=== PATIENT | female | born 1985 | race Hispanic/Latino ===

== ENCOUNTER 2018-01-12 17:05 | Emergency (ER) | payer OTHER ==
[2018-01-12 18:15] VITALS: BMI 28.7
== END 2018-01-12 19:47 | disposition home or self-care (01) ==
LOC: H.EROB2 17:05
DX: O26.93 Pregnancy related conditions, unspecified, third trimester (principal); R10.2 Pelvic and perineal pain; O47.1 False labor at or after 37 completed weeks of gestation; O48.0 Post-term pregnancy; Z3A.40 40 weeks gestation of pregnancy

== ENCOUNTER 2018-01-13 04:09 | Inpatient (IN) | payer OTHER ==
[2018-01-12 18:15] VITALS: BMI 28.7
[2018-01-13] MEDS: Lactated Ringer's 1,000 ML IV SCH ×4 (04:30→21:58)
[2018-01-13] MEDS ORDERED: Oxytocin 30 units/LR 500ML 30 U/500 ML BAG IV SCH (04:45)
[2018-01-13 04:59] LABS: BASO # 0.1 K/uL (0.0-0.2); BASO % 0.4 % (0.0-2.0); EOS % 0.1 % (0.0-4.0); HEMOGLOBIN 12.4 g/dL (12.0-16.0); LYMPH # 2.3 K/uL (1.0-4.3); LYMPH % 11.1 % (20.0-40.0); MEAN CELL VOLUME 89.4 fl (81.0-99.0); MEAN CORPUSCULAR HEMOGLOBIN 29.5 pg (27.0-31.0); MEAN PLATELET VOLUME 8.9 fl (7.2-11.7); MONO # 0.6 K/uL (0.0-0.8); NEUT # 17.7 K/uL (1.8-7.0); NEUT % 85.4 % (50.0-75.0); RBC 4.21 Mil/uL (3.80-5.20); RED CELL DISTRIBUTION WIDTH 13.3 % (11.5-14.5); WHITE BLOOD COUNT 20.7 K/uL (4.8-10.8)
[2018-01-13] MEDS ORDERED: Fentanyl/Bupivacaine HCl 250 ML EPI ONE (05:03)
[2018-01-13] MEDS ORDERED: Lidocaine 2% Inj (20ml) ONE (07:14)
--- NOTE | 2018-01-13 08:53 | OBADHP ---
Datetime: 01/12/2018 17:53 Admit Comment, IP Provider: 32 yo w/IUP at 40+ wks presents c/o ctx patient states that ctx sta rted at 2:30 pm and has been incresing in frequency and intensity, now every 5 min. +FM, denies lof, VB. PNC: [facility] Dr Lopez. PMH: denies PSH: denies NKA POB/GYNH: no STD PFH: denies. O: see PE tab. A/plan: 32 yo IUP @ 40+ wks with ctxl -/maternal monitoring Case discussed with Dr Mitchell. YBecerra PGY 1 Pelvic Type - PN: Adequate Extremities - PN: Normal Abdomen - PN: Normal Back - PN: Normal Breast - PN: Not Done Lungs - PN: Normal Heart - PN: Normal Thyroid - PN: Not Done Neurologic - PN: Normal HEENT - PN: Normal General - PN: Normal FHR - Baseline A Provider: 150 Contraction Comments Provider: every 3-4 min Vital Signs Provider: Reviewed; Within Normal Limits IP Chief Complaint: Uterine contractions NICHD Variability Prov Fetus A: Moderate 6-25bpm NICHD Accel Fetus A IP Provider: 10X10 FHR Category Provider Fetus A: Category I NICHD Decel Fetus A IP Provider: None Genitourinary Exam: Normal DTRs - PN: Not Done EGA AdmitDate IP: 41.0 IP Adm Impression: Term, intrauterine IP Admit Plan: Observation/Evaluation
--- NOTE | 2018-01-13 09:00 | OBADHP ---
Datetime: 01/13/2018 05:01 Admit Comment, IP Provider: 32-year-old at 41 weeks gestational age presents to [facility] g of contractions. No vaginal bleeding, leakage of fluids. Patient reports good movement. Past medical history none Past surgical history none Medications vitamins No known drug allergies Obstetrical history Social history no tobacco, drugs, alcohol Physical exam: Referred physical exam findings Assessment: Active labor Plan: Admit to labor and delivery for management. Plan discussed with patient all patient questions answ ered. Pelvic Type - PN: Adequate Extremities - PN: Normal Abdomen - PN: Normal Back - PN: Normal Breast - PN: Normal Lungs - PN: Normal Heart - PN: Normal Thyroid - PN: Normal Neurologic - PN: Normal HEENT - PN: Normal General - PN: Normal FHR - Baseline A Provider: 150s Membranes, Provider: Intact Contraction Comments Provider: q2-3min Vital Signs Provider: Reviewed; Within Normal Limits IP Chief Complaint: Uterine contractions NICHD Variability Prov Fetus A: Moderate 6-25bpm NICHD Decel Fetus A IP Provider: None Dilatation, Provider: 6 Effacement, Provider: 100 Station, Provider: 0 Genitourinary Exam: Normal DTRs - PN: Normal EGA AdmitDate IP: 41.1 IP Adm Impression: Term, intrauterine ; Active labor; Intact Membranes IP Admit Plan: Admit to unit; Initiate labor protocol
[2018-01-13] MEDS ORDERED: Oxytocin 30 UNITS in Sodium Chloride 0.9% 500 ML IV ONE (10:00)
[2018-01-13] MEDS ORDERED: Oxytocin 30 UNITS in Sodium Chloride 0.9% 500 ML IV SCH (10:00)
--- NOTE | 2018-01-13 11:31 | OBPN ---
Datetime: 01/13/2018 09:10 IP Progress Impression: Reassuring heart rate; Reactive non-stress test IP Informed Consent Obtain: Vaginal Delivery; Risks, Benefits and Alternatives Discussed IP Procedures: Artificial ROM IP Progress Plan: Augmentation; Anticipate Vaginal Delivery Membranes, Provider: Ruptured Contraction Comments Provider: 2-5m FHR - Baseline A Provider: 150 Presentation-Admit: Vertex IP Progress Note Comment: OB Hospitalist on-call Sign out rec'd She feels comfortable with epidural running. Active phase of labor slow progress due to inadequate CTX PLAN: discussio nwith patient about labor, delivey and postpatum care. She had more questions abou t pain management when she becomes fully dilated. Will start Pitocin...her questions answered...AROM attempted but already ROM NICHD Accel Fetus A IP Provider: 15X15 FHR Category Provider Fetus A: Category I NICHD Variability Prov Fetus A: Moderate 6-25bpm Dilatation, Provider: 8-9 Effacement, Provider: 100 Station, Provider: -1 NICHD Decel Fetus A IP Provider: None Datetime: 01/13/2018 05:01 Vital Signs Provider: Reviewed; Within Normal Limits
[2018-01-13] MEDS ORDERED: Lidocaine 2% PF (10 ml) Amp ONE (13:26)
[2018-01-13] MEDS ORDERED: Oxycodone/Acetaminophen 5/325 mg Tab PO PRN (13:40)
--- NOTE | 2018-01-13 13:50 | OBDS ---
DELIVERY PERSONNEL Delivery Doctor: Reid Ordaz DO [employer] Finisher: Mariza Hernadez RN Anesthesiologist: Christi Bass MD MATERNAL INFORMATION Delivery Anesthesia: Epidural Medications in Delivery: pitocin 30/ 500 Maternal Complications: None Provider Comments: Over tinact perineum, of live male from [facility] presentation. One loose nuchal cord noted and reduced. Delayed cord clamp, cord cut and baby placed on mother's chest. APG A9,9. Placenta delivered intact spontaneously. She remeained stable. EBL 200cc LABOR SUMMARY EDC: 01/05/2018 00:00 No. Babies in Womb: 0 Attempted: No Labor Anesthesia: Epidural LABOR INFORMATION Reason for Induction: Not Applicable Onset of Labor: 01/13/2018 04:59 Complete Dilatation: 01/13/2018 11:06 Oxytocin: Augmentation Group B Beta Strep: Negative Antibiotics # of Doses: 0 Antibiotics Time of Last Dose: N/A Steroids Given: None Reason Steroids Not Administered: Not Applicable MEMBRANES Membranes Rupture Method: Spontaneous Rupture of Membranes: 01/13/2018 04:30 Length of Rupture (hrs): 8.78 Amniotic Fluid Color: Clear Amniotic Fluid Amount: Moderate STAGES OF LABOR Stage 1 hrs: 6 Stage 1 min: 7 Stage 2 hrs: 2 Stage 2 min: 11 Stage 3 hrs: 0 Stage 3 min: 11 Total Time in Labor hrs: 8 Total Time in Labor min: 29 VAGINAL DELIVERY Episiotomy: None Laceration Extension: Second Degree Laceration Type: Perineal Laceration Repair: Yes Laceration Repair Note: 1% Lidocaine infiltraed and Dr Bass called for epidural top off dose. 3.0 Viryl sutures placed interupted at anal verge x 3. 2.0 Vicryl Rapide suture was used to repair perin eal laceration BABY A INFORMATION Infant Delivery Date/Time: 01/13/2018 13:17 Method of Delivery: Vaginal Born in Route : No : N/A Forceps: N/A Vacuum Extraction: N/A Shoulder Dystocia : No SHOULDER DYSTOCIA BABY A Delivery Date/Time: 01/13/2018 13:17 PRESENTATION/POSITION BABY A Presentation: Cephalic Cephalic Presentation: Vertex Breech Presentation: N/A PLACENTA INFORMATION BABY A Placenta Delivery Time : 01/13/2018 13:28 Placenta Method of Delivery: Spontaneous Placenta Status: Delivered SCORES BABY A Heart Rate 1 min: >100 bpm Resp Effort 1 min: Good Cry Reflex Irritability 1 min: Cough or Sneeze or Pulls Away Muscle Tone 1 min: Active Motion Color 1 min: Body [place], Extremities Blue SCORE 1 MIN: 9 Heart Rate 5 min: >100 bpm Resp Effort 5 min: Good Cry Reflex Irritability 5 min: Cough or Sneeze or Pulls Away Muscle Tone 5 min: Active Motion Color 5 min: Body [place], Extremities Blue SCORE 5 MIN: 9 INFORMATION BABY A Gestational Age at Delivery: 41.1 Gestational Status: Infant Outcome : Liveborn Infant Condition : Stable Sex: Male IDENTIFICATION/MEDS BABY A ID Band Number: [id number] ID Band Location: Left Leg; Left Arm WEIGHT/LENGTH BABY A Birthweight (gms): 3750 Weight (lb): 8 Weight (oz): 4 CORD INFORMATION BABY A No. Cord Vessels: 3 Nuchal Cord : Around Neck x1, Loose Suction: Mouth; Nose
--- NOTE | 2018-01-14 07:17 | OBPPN ---
Datetime: 01/14/2018 07:13 PP Pain Prov: Within normal limits PP Abdomen/Uterus Prov: Normal PP Lochia Prov: Normal PP Extremities Prov: Normal PP Impression Prov: Normal progression PP Plan Prov: Continue present management PP Progress Note Prov: PPD 1 s/p , doing well, breast pumping Continue currrent care Vital Signs Provider PP: Reviewed; Within Normal Limits
[2018-01-14 08:36] LABS: HEMOGLOBIN 10.3 g/dL (12.0-16.0); MEAN CORPUSCULAR HEMOGLOBIN 30.5 pg (27.0-31.0); MEAN CORPUSCULAR HGB CONC 33.9 g/dL (33.0-37.0); RBC 3.38 Mil/uL (3.80-5.20); RED CELL DISTRIBUTION WIDTH 13.9 % (11.5-14.5); WHITE BLOOD COUNT 17.9 K/uL (4.8-10.8)
--- NOTE | 2018-01-14 13:03 | OBPPN ---
Datetime: 01/14/2018 13:00 PP Pain Prov: Within normal limits PP Impression Prov: Normal progression PP Plan Prov: Discharge PP Progress Note Prov: PPD 1 s/p , doing well, breast pumping. ] Pt's baby is to be transferred to [facility]. Pt would like to be discharged home. Rx motrin and ferrous sulfate given. Dsicharge home today (ES) Vital Signs Provider PP: Reviewed
--- NOTE | 2018-01-14 13:08 | OBDCSUM ---
Datetime: 01/14/2018 13:03 Discharged to, Provider: Home Follow up at, Provider: Dr. Lopez Disch Instr Activity: May Shower Disch Instr Diet: Regular Discharge Instructions, Provider: Routine instructions given Discharge Diagnosis, Provider: Term Delivered Discharge Time: 01/14/2018 13:04 Follow up in weeks, Provider: 6 weeks Contraception discussed, Prov: No Disch Activity Restrictions: No exercising; No lifting; No sexual activity; Nothing in vagina - Inte rcourse, tampons, douche
[2018-01-15 01:29] VITALS: BP 117/67; PULSE 66; RESP 19; TEMP 97.8; O2SAT 100
== END 2018-01-14 13:40 | disposition home or self-care (01) | DRG 775 ==
LOC: H.EROB2 04:09 → H.L&D 04:37 → H.OB/GYN 15:43
PROVIDERS: ADMIT Obstetrics & Gynecology; ATTEND Obstetrics & Gynecology
PROC: 10E0XZZ Delivery of Products of Conception, External Approach (ICD-10-PCS; principal; 2018-01-13)
PROC: 0KQM0ZZ Repair Perineum Muscle, Open Approach (ICD-10-PCS; 2018-01-13)
PROC: 10907ZC Drainage of Amniotic Fluid, Therapeutic from Products of Conception, Via Natural or Artificial Opening (ICD-10-PCS; 2018-01-13)
PROC: 4A1HXCZ Monitoring of Products of Conception, Cardiac Rate, External Approach (ICD-10-PCS; 2018-01-13)
DX: O48.0 Post-term pregnancy (principal); O70.1 Second degree perineal laceration during delivery; O69.81X0 Labor and delivery complicated by cord around neck, without compression, not applicable or unspecified; Z3A.41 41 weeks gestation of pregnancy; Z37.0 Single live birth